=== PATIENT | male | born 1985 | race Caucasian/White ===

== ENCOUNTER 2025-09-01 13:39 | Emergency (ER) | payer MEDICAID ==
[~2025-09-01] VITALS: Ht 180.3 cm; Wt 86.4 kg
[2025-09-01 13:40] VITALS: BP 144/88; PULSE 114; RESP 18; TEMP 98.1; O2SAT 99
[2025-09-01] MEDS ORDERED: BUPR1TAB46 SL (13:43)
== END 2025-09-01 14:43 | disposition left against medical advice (07) ==
LOC: EMS 13:39
DX: M79.672 Pain in left foot (principal); M79.671 Pain in right foot; Z53.21 Procedure and treatment not carried out due to patient leaving prior to being seen by health care provider
CPT/HCPCS: 99281; Z7502